=== PATIENT | female | born 1980 | race Caucasian/White ===

== ENCOUNTER 2020-06-11 20:36 | Emergency (ER) | payer SELFPAY ==
[~2020-06-11] VITALS: Ht 157.5 cm; Wt 73.0 kg
[~2020-06-11 20:36] MED LIST: LORTAB 10 PO; ORTHO TRI-CY OR; ULTRAM50 MG OR
[2020-06-11] MEDS ORDERED: AMOXICILLIN500 M2 PO (20:57)
[2020-06-11] MEDS ORDERED: PERCOCET 5/325M1 TAB PO (20:57)
[2020-06-11 21:05] VITALS: BP 139/77
== END 2020-06-11 21:05 | disposition home or self-care (01) | DRG 158 ==
LOC: ED 20:36
DX: K04.7 Periapical abscess without sinus (principal); K02.9 Dental caries, unspecified; M84.68XA Pathological fracture in other disease, other site, initial encounter for fracture; F17.210 Nicotine dependence, cigarettes, uncomplicated